=== PATIENT | male | born 1980 | race Caucasian/White ===

== ENCOUNTER 2017-02-19 15:29 | Emergency (ER) | payer OTHER ==
[~2017-02-19] VITALS: Ht 170.2 cm; Wt 95.2 kg
--- NOTE | ~2017-02-19 | CT114 ---
[facility] A Service of [facility] RADIOLOGY TEXT RESULTS PATIENT: NIYA SANTANA LOCATION: SED : 82 UNIT #: [id number] AGE: [address]: Rafa Bustamante SEX: M ORDER DR: [id number] [address] [id number] E MR#: [id number] Acc #: [id number] NAME: NIYA SANTANA : 1980 SEX: M STUDY DATE/TIME: 02/19/2017 18:30 UNIT: SED ROOM: STUDY DESCRIPTION: CT Soft Tissue Neck W Cont Attending Physician: Rafa Bustamante P.A.-C. Ordering Physician: Rafa Bustamante P.A.-C. Primary Care Physician: Denise Polk M.D. MEDICAL IMAGING REPORT This report is preliminary unless electronic signature is present. EXAM CT neck with contrast HISTORY A 36-year-old male, lump in throat since Sunday 3 days ago, fills like something stuck in throat. No food going down TECHNIQUE Axial images form from the skull base to the colby following IV contrast. Multiplanar reconstructed images reviewed. This CT exam was performed with one or more of the following radiation dose reduction techniques: automatic exposure control, adjustment of mA and/or kV according to patient size, and iterative reconstruction. FINDINGS The thyroid, submandibular and parotid glands appear normal. The anatomic spaces within the head and neck appear normal. No significant adenopathy. No abnormal fluid collections identified. In particular the prevertebral soft tissues appear normal. The airway is patent. The visualized esophagus unremarkable. Upper thorax appears normal. Cervical spine remarkable for broad-based posterior disc protrusions C5-6 and to a lesser extent C6-7. The visualized head and neck vasculature appears normal. There are a few small posterior cervical lymph nodes. IMPRESSION 1. No acute head neck pathology identified. The aeroesophageal airway appears patent. 2. C5-6, C6-7 degenerative disc disease with a posterior disc protrusion osteophyte C5-6 contributing to central canal stenosis. [facility] A Service of [facility] & [facility] RADIOLOGY TEXT RESULTS PATIENT: NIYA SANTANA LOCATION: SED : 81 UNIT #: [id number] AGE: [address]: Rafa Bustamante PAC SEX: M ORDER DR: Dictated by... Steve Castillo M.D. THIS IS AN ELECTRONICALLY VERIFIED REPORT Steve Castillo M.D. at 02/20/2017 2:32 PM Luis TD: 02/20/2017 05:54 JOB #: [id number] MEDICAL IMAGING REPORT Page 1 of 1
[~2017-02-19 15:29] MED LIST: FLEXERIL10 MG PO; NAPROXEN PO; NO MEDICATIONS
[2017-02-19 17:35] LABS: BASOPHIL# 0.1 X10e3 (0-0.3); BASOPHIL% 0.7 % (0-2.5); DIFF IND NO; EOSINOPHIL% 0.4 % (0.0-7.0); HEMATOCRIT 50.6 % (38.0-50.0); HEMOGLOBIN 17.8 gm/dL (13.0-16.0); LYMPHOCYTE# 1.5 X10e3 (1.0-3.5); LYMPHOCYTE% 17.1 % (17.0-45.0); MEAN CELL VOLUME 81.7 FL (83-96); MEAN CORPUSCULAR HEMOGLOBIN 28.7 PG (28-34); MEAN CORPUSCULAR HGB CONC 35.1 g/dL (30-36); MEAN PLATELET VOLUME 10.4 FL (6.5-11.5); MONOCYTE# 0.5 X10e3 (0-1.0); MONOCYTE% 5.9 % (3.0-12.0); NEUTROPHIL# 6.7 X10e3 (1.5-7.1); NEUTROPHIL% 75.9 % (40-75); PLATELET COUNT 150 X10e3 (140-420); RED BLOOD COUNT 6.19 X10e (3.90-5.60); RED CELL DISTRIBUTION WIDTH 13.5 % (11.0-15.5); WHITE BLOOD COUNT 8.9 X10e3 (4.0-10.5)
[2017-02-19 17:45] LABS: ALBUMIN SERUM 4.8 g/dL (3.5-5.0); BILIRUBIN, DIRECT 0.1 mg/dL (0.0-0.2); BILIRUBIN,TOTAL 1.1 mg/dL (0.2-2.0); CREATININE SERUM 1.1 mg/dL (0.6-1.4); GLOM FILT RATE Estimated 86.5 mL/min (>60); POTASSIUM 3.7 mmol/L (3.5-5.1); PROTEIN TOTAL SERUM 8.5 g/dL (6.0-8.3)
[2017-02-19 18:13] LABS: URINE SOURCE CLEAN CATCH
[2017-02-19 18:20] LABS: URINE APPEARANCE CLEAR; URINE BILIRUBIN NEG (NEG); URINE BLOOD TRACE-INTACT (NEG); URINE COLOR YELLOW; URINE GLUCOSE NEG (NORM); URINE KETONE 1+ (NEG); URINE LEUKOCYTE ESTERASE NEG (NEG); URINE NITRATE NEG (NEG); URINE PROTEIN NEG (NEG); URINE SPECIFIC GRAVITY <=1.005 (1.003-1.035); URINE UROBILINOGEN 0.2 MG/DL (NORM)
[2017-02-19 18:21] LABS: MICRO INDICATED? YES
[2017-02-19 18:31] LABS: CULTURE INDICATED? NO; URINE BACTERIA NEG (NEG); URINE SQUAMOUS EPITHELIAL CELL OCCAS /[HPF]; URINE WBC 0-2 /[HPF] (0-5)
== END 2017-02-19 19:30 | disposition home or self-care (01) ==
LOC: SED 15:29
PROVIDERS: Physician Assistant
DX: K20.9 Esophagitis, unspecified (principal)
CPT/HCPCS: 36415; 70491; 80048; 80076; 81003; 83690; 85025; 96361; 96374; 99284; C9113; Q9967